=== PATIENT | male | born 2000 ===

== ENCOUNTER → 2019-05-28 16:51 | Outpatient (CLI) | payer OTHER | END | disposition home or self-care (01) | LOC: LAB 16:51 | DX: N39.0 Urinary tract infection, site not specified (principal); R31.29 Other microscopic hematuria ==

== ENCOUNTER 2023-07-10 12:17 | Outpatient (CLI) | payer OTHER | END 2023-07-10 12:32 | disposition home or self-care (01) | LOC: MRI 12:17 | PROVIDERS: ATTEND Orthopaedic Surgery | DX: M25.561 Pain in right knee (principal); M25.562 Pain in left knee | CPT/HCPCS: 73718 ==